=== PATIENT | female | born 1990 | race Caucasian/White ===

== ENCOUNTER 2020-01-01 01:53 | Emergency (ER) | payer MEDICAID ==
[~2020-01-01] VITALS: Ht 144.8 cm; Wt 69.4 kg
[2020-01-01 02:26] VITALS: Ht 144.8 cm; Wt 69.4 kg
[2020-01-01 03:05] LABS: PLATELET COUNT 157 x10^3mcL (130-400); RED CELL DISTRIBUTION WIDTH 12.6 % (11.5-14.5)
[2020-01-01 03:23] LABS: BAND NEUTROPHIL 0 % (0-10); BASOPHIL 0 % (0-2); CARBON DIOXIDE 22.4 mmol/L (21-32); CREATININE SERUM 2.2 mg/dL (0.6-1.0); MONOCYTE 6 % (0-7); POTASSIUM SERUM 4.5 mmol/L (3.5-5.1); SEGMENTED NEUTROPHILS 55 % (37-75)
[2020-01-01 03:24] LABS: ovalocyte/elliptocyte 1+; rbc morphology (normal/abnorm) ABNORMAL (NORMAL)
[2020-01-01 03:28] LABS: BILIRUBIN TOTAL 0.15 mg/dL (0.20-1.00); TOTAL PROTEIN, SERUM 7.8 g/dL (6.4-8.2)
[2020-01-01 03:35] LABS: ALBUMIN 2.7 g/dL (3.4-5.0)
[2020-01-01 05:29] VITALS: BP 106/64
== END 2020-01-01 05:29 | disposition home or self-care (01) ==
LOC: ED 01:53
PROVIDERS: Emergency Medicine
DX: D69.2 Other nonthrombocytopenic purpura (principal); R21 Rash and other nonspecific skin eruption
CPT/HCPCS: 36415